=== PATIENT | male | born 1960 | race Caucasian/White ===

== ENCOUNTER 2021-07-05 14:39 | Emergency (ER) | payer SELFPAY ==
[2021-07-05 15:50] LABS: HEMOGLOBIN 13.6 gm/dl (14.0-17.5); RED BLOOD COUNT 5.11 M/UL (4.20-5.50); WHITE BLOOD COUNT 6.2 K/UL (4.5-11.0)
[2021-07-05 16:14] LABS: BUN/CREATININE RATIO 17 (0-10)
[2021-07-05] MEDS ORDERED: ZITHROMAX500 MG PO (18:46)
== END 2021-07-05 19:16 | disposition home or self-care (01) ==
LOC: ER1 14:39
PROVIDERS: Physician Assistant
DX: J02.0 Streptococcal pharyngitis (principal); R53.83 Other fatigue; E78.5 Hyperlipidemia, unspecified; Z88.0 Allergy status to penicillin; Z20.822 Contact with and (suspected) exposure to COVID-19
CPT/HCPCS: 0240U; 36600; 71045; 80053; 81001; 82550; 82553; 82803; 83605; 83735; 83880; 84100; 84484; 85025; 85610; 85652; 85730; 86140; 87040; 87081; 87086; 87205; 87880; 93005; 99284